=== PATIENT | female | born 1955 | race Caucasian/White ===

== ENCOUNTER → 2019-03-10 | Outpatient (CLI) | payer OTHER ==
--- NOTE | 2019-03-10 13:13 | RAD ---
DATE: 03/10/2019 EXAM: MAMMO MARIANO SCREENING BILATERAL HISTORY: Routine screening COMPARISON: 11/26/2017, 12/05/2017 This study was interpreted with the benefit of Computerized Aided Detection (CAD). Breast Density: HETERO The breast parenchyma is heterogenously dense, which could reduce sensitivity of mammography. Breast parenchyma level C. FINDINGS: 2-D and 3-D tomosynthesis imaging was performed in CC and MLO projections. No new or enlarging breast densities are seen. Minimal benign type calcification is present. No suspicious microcalcifications have developed. IMPRESSION: Stable mammograms without evidence of malignancy. BI-RADS CATEGORY: 2 BENIGN FINDING(S) RECOMMENDED FOLLOW-UP: 12M 12 MONTH FOLLOW-UP PQRS compliance statement: Patient information was entered into a reminder system with a target due date for the next mammogram. Mammography is a sensitive method for finding small breast cancers, but it does not detect them all and is not a substitute for careful clinical examination. A negative mammogram does not negate a clinically suspicious finding and should not result in delay in biopsying a clinically suspicious abnormality. "Our facility is accredited by the [employer] Mammography Program."
== END | disposition home or self-care (01) ==
LOC: MAMMO 08:12
PROVIDERS: ATTEND Physician Assistant Medical
DX: Z12.31 Encounter for screening mammogram for malignant neoplasm of breast (principal); N64.89 Other specified disorders of breast
CPT/HCPCS: 77063; 77067

== ENCOUNTER → 2020-04-14 | Outpatient (CLI) | payer OTHER ==
--- NOTE | 2020-04-14 13:08 | RAD ---
BILATERAL SCREENING MAMMOGRAM, 3-D History: Routine screening. Comparison: 12/22/2015, 11/26/2017. Technique: MLO and CC digital tomosynthesis (3D) images obtained. Radiologist reviewed these images on dedicated workstation. Findings: Breast Tissue Density C : The breasts are heterogeneously dense, which may obscure small masses. There are no dominant masses, suspicious microcalcifications, or architectural distortion. IMPRESSION: No mammographic evidence of malignancy. Recommend routine screening. BI-RADS category 1: Negative. The images were reviewed with computer-aided detection. Patient information is entered into reminder system with a target due date for the next screening mammogram. Mammography is the most sensitive method for finding small breast cancers, but it does not detect them all and is not a substitute for careful clinical examination. A negative mammogram does not negate a clinically suspicious finding and should not result in delay in biopsying a clinically suspicious abnormality. "Our facility is accredited by the [employer] Mammography [employer]." Electronically signed by: Kevyn Cardenas MD (04/14/2020 1:05 PM) [email or web address]
== END | disposition home or self-care (01) ==
LOC: MAMMO 10:41
PROVIDERS: ATTEND Physician Assistant Medical
DX: Z12.31 Encounter for screening mammogram for malignant neoplasm of breast (principal)
CPT/HCPCS: 77063; 77067

== ENCOUNTER → 2021-04-18 | Outpatient (CLI) | payer OTHER ==
--- NOTE | 2021-04-18 09:26 | RAD ---
PROCEDURE: MG BILAT SCREEN+MARIANO HISTORY: The patient is 66 years old and is seen for Reason: SCREENING MAMMOGRAM / Spl. Instructions: / History: . COMPARISON: April 14, 2020 TECHNIQUE: CC and MLO views of both breasts were obtained. Images were processed by the [employer] computer-aided detection system. DENSITY: The breast parenchyma is heterogeneously dense. This may lower the sensitivity of mammograph y. FINDINGS: No developing mass, suspicious calcifications or architectural distortion. IMPRESSION: Negative. No evidence of malignancy. Recommend annual screening mammograms per [employer] guidelines. She will be due in one year. BI-RADS category 1 Negative Patient entered into a reminder system for annual screening mammogram. Electronically signed by: Rodríguez Nesbitt DO (04/18/2021 9:24 AM) [id number]
== END ==
LOC: MAMMO 08:29
PROVIDERS: ATTEND Physician Assistant Medical
DX: Z12.31 Encounter for screening mammogram for malignant neoplasm of breast (principal)
CPT/HCPCS: 77063; 77067

== ENCOUNTER → 2021-07-04 | Outpatient (CLI) | payer OTHER ==
--- NOTE | 2021-07-04 15:09 | KCIC ---
Examination: MRI of the left knee without contrast HISTORY: History of left knee pain medial left knee pain COMPARISON: None available TECHNIQUE: Multiplanar, multisequence MR imaging of the left knee was performed without contrast. FINDINGS: Anterior cruciate ligament, posterior cruciate ligament appears intact. There is blunting of the body of the medial meniscus likely tear with multiloculated cystic structure measuring 2.3 cm extending f rom the anterior horn of the medial meniscus likely meniscal cyst. The lateral meniscus appears intac t. The medial collateral ligament appears intact. The lateral collateral ligamentous complex includin g the fibular collateral ligament, biceps femoris tendon, popliteus tendon appears intact. Small knee joint effusion with small popliteal cyst. The extensor mechanism appears intact. The medial, lateral retinaculum appears intact. There is super ficial fraying of cartilage identified in the medial, lateral, patellofemoral compartments. IMPRESSION: 1. Blunting of the body of the medial meniscus likely tear with multiloculated cystic structure measu ring 2.3 cm extending from the anterior horn of the medial meniscus likely meniscal cyst. 2. Small knee joint effusion. Small popliteal cyst. 3. Grade 1 Chondromalacia medial, lateral, patellofemoral compartments. Electronically signed by: Keron Ware MD (07/04/2021 3:06 PM) [id number]
== END ==
LOC: KCIC MRI 13:35
PROVIDERS: ATTEND Physician Assistant Medical
DX: M25.462 Effusion, left knee (principal); M71.22 Synovial cyst of popliteal space [Baker], left knee; M94.212 Chondromalacia, left shoulder
CPT/HCPCS: 73721